=== PATIENT | male | born 1995 | race American Indian/Alaskan Native ===

== ENCOUNTER 2019-02-22 14:06 | Emergency (ER) | payer OTHER ==
[2019-02-22] MEDS ORDERED: ZOFRAN IV ONE (14:33)
[2019-02-22 14:37] LABS: Hematocrit 48.4 % (35.5-45.6); Hemoglobin 16.5 gm/dl (11.8-15.2); Mean Corpuscular HGB Conc 34 % (32-34); Mean Corpuscular Volume 95 fl (84-94); Platelet Count 309 K/mm3 (140-440); Red Cell Distribution Width 14.1 % (13.2-15.2)
--- NOTE | 2019-02-22 14:37 | Emergency Department Report ---
HPI - General Chief Complaint: Altered Mental Status Time Seen by Provider: 02/22/19 14:26 - HPI HPI: Room 3 The patient is a 23-year-old male with a chief complaint of altered mental status. Patient was reportedly found with altered mental status and lethargic at a local [place] station. EMS reports the patient admitted to smoking "bad drugs." The patient states he remembers being in a car getting nauseous and then waking up in the emergency department. Patient originally stated he has no symptoms currently upon further questioning patient admits to still feeling nauseous Location: Mental state Duration: Unknown Quality: Altered Severity: Moderate Modifying factors: [see above] Context: [see above] Mode of transportation: [not driving] ED Past Medical Hx - Past Medical History Hx Hypertension: Yes - Surgical History Past Surgical History?: No Additional Surgical History: Right retinal detachment repair - Family History Family history: no significant - Social History Smoking Status: Never Smoker Substance Use Type: None (denies illicit drug use) - Medications Home Medications: Home Medications Medication Instructions Recorded Confirmed Last Taken Type No Known Home Medications [No 02/22/19 02/22/19 Unknown History Reported Home Medications] ED Review of Systems ROS: Stated complaint: AMS Other details as noted in HPI Constitutional: no symptoms reported Eyes: denies: eye pain ENT: denies: throat pain Respiratory: no symptoms reported Cardiovascular: denies: chest pain Endocrine: no symptoms reported Gastrointestinal: nausea Genitourinary: denies: dysuria Musculoskeletal: denies: back pain Neurological: denies: headache Physical Exam - Physical Exam Physical Exam: GENERAL: The patient is well-developed well-nourished male lying on stretcher sleeping at appearing to be in acute distress. [] HEENT: Normocephalic. Atraumatic. Extraocular motions are intact. Patient has moist mucous membranes. NECK: Supple. No meningitic signs are noted. Trachea midline CHEST/LUNGS: Clear to auscultation. There is no respiratory distress noted. HEART/CARDIOVASCULAR: Regular. There is no tachycardia. There is no gallop rub or murmur. ABDOMEN: Abdomen is soft, nontender. Patient has normal bowel sounds. There is no abdominal distention. SKIN: There is no rash. There is no edema. There is no diaphoresis. NEURO: The patient is asleep but easily awakened. Patient appears slightly confused. The patient is cooperative. The patient has no focal neurologic deficits. The patient has normal speech. Cranial nerves II through XII grossly intact, no drift. Moves all extremities well MUSCULOSKELETAL: There is no evidence of acute injury. ED Course - Reevaluation(s) Reevaluation #1: 02/22/19 16:44 Patient states he feels much improved. Family at bedside ED Medical Decision Making - Lab Data Result diagrams: 02/22/19 Unknown 02/22/19 Unknown - Radiology Data Radiology results: report reviewed (CT head), image reviewed (CT head) [facility] [address] [place] [address] Cat Scan Report Signed Patient: SARAH FOSTER MR#: [id number] : 1995 Acct:[id number] Age/Sex: 23 / M ADM Date: 02/22/19 Loc: ED Attending Dr: Ordering Physician: NICKI DAVID MD Date of Service: 02/22/19 Procedure(s): CT head/brain wo con Accession Number(s): [id number] cc: NICKI DAVID MD PROCEDURE: CT HEAD/BRAIN WO CON TECHNIQUE: Axial images obtained head without intravenous contrast HISTORY: altered mental status COMPARISONS: None FINDINGS: No extra- axial fluid collection. No midline shift. No cisternal effacement. Ventricular system unremarkable. Castaneda-white interface maintained. No parenchymal hemorrhage. No suspect hyperdensity over the middle cerebral arteries. Paranasal sinuses demonstrate no air-fluid level. Mastoid air cells normal aeration. Calvarium intact. Right globe is hyperdense. IMPRESSION: No acute intracranial process.. Right globe is hyperdense compatible with prior procedure or hemorrhage.. This document is electronically signed by Darius Leal MD., February 22 2019 03:02:27 PM ET Transcribed By: JUNE Dictated By: DARIUS LEAL MD Electronically Authenticated By: DARIUS LEAL MD Signed Date/Time: 02/22/19 1504 DD/ 1451 TD/TT: 02/22/19 1451 - Differential Diagnosis intoxication, [facility] Critical care attestation.: If time is entered above; I have spent that time in minutes in the direct care of this critically ill patient, excluding procedure time. ED Disposition Clinical Impression: Marijuana use Disposition: DC-01 TO HOME OR SELFCARE Is pt being admited?: No Does the pt Need Aspirin: No Condition: Stable Additional Instructions: Return to the emergency department immediately should you develop worsening symptoms, fever, inability to tolerate food or liquid or any other concerns. Referrals: [facility] [Outside] - 3-5 Days Time of Disposition: 16:45
[2019-02-22 14:52] LABS: BUN/Creatinine Ratio 7; Blood Urea Nitrogen 8 mg/dL (9-20); Calcium 10.2 mg/dL (8.4-10.2); Hemolysis Index 31
[2019-02-22 14:53] LABS: Creatine Kinase MB 1.1 ng/mL (0.0-4.0)
[2019-02-22] MEDS ORDERED: NACL 0.9% 1000 ML 1,000 ML IV ONE (15:03)
--- NOTE | 2019-02-22 15:04 | Cat Scan Report ---
PROCEDURE: CT HEAD/BRAIN WO CON TECHNIQUE: Axial images obtained head without intravenous contrast HISTORY: altered mental status COMPARISONS: None FINDINGS: No extra-axial fluid collection. No midline shift. No cisternal effacement. Ventricular system unrema rkable. Castaneda-white interface maintained. No parenchymal hemorrhage. No suspect hyperdensity over the middle cerebral arteries. Paranasal sinuses demonstrate no air-fluid level. Mastoid air cells normal aeration. Calvarium intact. Right globe is hyperdense. IMPRESSION: No acute intracranial process.. Right globe is hyperdense compatible with prior procedure or hemorrhage.. This document is electronically signed by Darius Lopez MD., February 22 2019 03:02:27 PM ET
[2019-02-22 16:01] LABS: Bilirubin,Urine NEG (Negative); Blood,Urine MOD (Negative); Color,Urine Yellow (Yellow); Mucus,Urine 1+ /HPF; Urobilinogen,Urine < 2.0 mg/dL (<2.0)
[2019-02-22 16:10] LABS: Amphetamine Screen,Urine PRESUMPTIVE NEGATIVE; Benzodiazepines Screen,Urine PRESUMPTIVE NEGATIVE; Cocaine Screen,Urine PRESUMPTIVE NEGATIVE; Methadone Screen,Urine PRESUMPTIVE NEGATIVE; Opiate Screen,Urine PRESUMPTIVE NEGATIVE
[2019-02-22 17:01] LABS: Cannabinoid Screen,Urine PRESUMPTIVE POSITIVE
[2019-02-22 17:26] VITALS: BP 143/88
== END 2019-02-22 17:27 | disposition home or self-care (01) ==
LOC: ED 14:06
DX: R41.82 Altered mental status, unspecified (principal); R53.83 Other fatigue; F12.90 Cannabis use, unspecified, uncomplicated; I10 Essential (primary) hypertension
CPT/HCPCS: 36415; 70450; 80048; 80307; 81001; 82550; 82553; 84484; 85027; 96361; 96374; 99284; G0480; J2405; J7030; 80320